=== PATIENT | female | born 1990 | race Caucasian/White ===

== ENCOUNTER 2020-01-04 13:38 | Emergency (ER) | payer OTHER ==
[~2020-01-04] VITALS: Ht 157.5 cm; Wt 81.6 kg
[2020-01-04 13:55] VITALS: Ht 157.5 cm; Wt 81.6 kg
[2020-01-04 15:55] VITALS: BP 170/81
== END 2020-01-04 15:55 | disposition home or self-care (01) ==
LOC: ED 13:38
DX: S93.402A Sprain of unspecified ligament of left ankle, initial encounter (principal); X58.XXXA Exposure to other specified factors, initial encounter; Y93.89 Activity, other specified; Y92.89 Other specified places as the place of occurrence of the external cause; Y99.8 Other external cause status
CPT/HCPCS: J1885; Q0092